=== PATIENT | female | born 1995 | race Caucasian/White ===

== ENCOUNTER 2016-11-21 12:39 | Emergency (ER) | payer SELFPAY ==
[~2016-11-21] VITALS: Ht 157.5 cm; Wt 56.4 kg
[~2016-11-21 12:39] MED LIST: ACYCLOVIR400 MG PO; AMOXICILLIN/CL875 MG OR; AMOXICILLIN500 M2 PO; AMOXICILLIN500 MG PO; AUGMENTIN875 MG OR; AUGMENTIN875TAB PO; BACTRIM DS1 TAB OR; BACTRIM DS1 TAB PO; CIPRODEX1 ML AU; CIPRODEX1 ML OT; DIFLUCAN150 MG PO; LORTAB 5 OR; MEDDOSEPAK OR; MOTRIN800 MG PO; NAPROSYN500 MG PO; NO HOME MEDS; TOBRAMYCIN0.3 % OD; ZOFRAN4 MG PO
[2016-11-21 15:01] LABS: HEMATOCRIT 41.9 % (37.0-47.0); HEMOGLOBIN 14.7 g/dl (12.0-16.0); IMMATURE GRANULOCYTES 0.5 % (0.0-1.0); MEAN CELL VOLUME 87.3 fL CALC (80.0-100.0); MEAN CORPUSCULAR HGB 30.6 pG CALC (26.0-32.0); MEAN CORPUSCULAR HGB CONC 35.1 g/L CALC (32.0-36.0); NEUT# 10.52 thou/uL (2.00-7.15); RED BLOOD COUNT 4.8 mill/uL (4.20-5.60); RED CELL DISTRI WIDTH 11.9 % (11.5-15.5)
[2016-11-21 15:03] LABS: URINE BILIRUBIN - DIPSTICK NEGATIVE (NEGATIVE); URINE BLOOD DIPSTICK NEGATIVE (NEGATIVE); URINE CLARITY CLEAR; URINE COLOR YELLOW; URINE GLUCOSE - DIPSTICK NEGATIVE (NEGATIVE); URINE KETONE >=80 mg/dL (NEGATIVE); URINE LEUK ESTERASE NEGATIVE (NEGATIVE); URINE NITRITE - DIPSTICK NEGATIVE (Negative); URINE PROTEIN - DIPSTICK TRACE mg/dL (NEG-TRACE); URINE SPECIFIC GRAVITY 1.015; URINE UROBILINOGEN - DIPSTICK 0.2 E.U./dL (0.2)
[2016-11-21 15:13] LABS: ALBUMIN 4.8 g/dL (3.2-5.0); ALKALINE PHOSPHATASE 38 u/l (38-126); ANION GAP 17 (6-22 (CALC)); BILIRUBIN, TOTAL 1.4 mg/dL (0.0-1.4); BUN 12 mg/dL (7-17); BUN/CREATININE RATIO 20 (12-20 (CALC)); CALCIUM 10.2 mg/dL (8.4-10.2); CARBON DIOXIDE 21 mmol/l (22-30); CHLORIDE 105 mmol/l (95-108); CREATININE 0.6 mg/dL (0.5-1.0); GFR > 60 ML/MIN (>=60 (CALC)); GFR FOR AFR.AMER. > 60 ML/MIN (>=60 (CALC)); GLUCOSE 87 mg/dL (65-105); POTASSIUM 3.6 mmol/l (3.5-5.1); SGOT/AST 16 u/l (14-36); SGPT/ALT 26 u/l (9-52); SODIUM 139 mmol/l (137-146)
[2016-11-21 15:31] LABS: BETA-HCG, QUANT(RESULT NUMBER) 43680 mIU/mL
[2016-11-21 15:40] LABS: C. DIFFICILE TOXIN A&B NEGATIVE (NEGATIVE)
[2016-11-21] MEDS ORDERED: PHENERGAN25 MG/TAB PO (18:28)
[2016-11-21] MEDS ORDERED: ZITHROMAX250 MG PO (18:28)
[2016-11-21 18:34] VITALS: BP 114/65
== END 2016-11-21 18:36 | disposition home or self-care (01) | DRG 781 ==
LOC: ED 12:39
PROVIDERS: Emergency Medicine
DX: O98.811 Other maternal infectious and parasitic diseases complicating pregnancy, first trimester (principal); A04.5 Campylobacter enteritis; R11.2 Nausea with vomiting, unspecified; Z3A.01 Less than 8 weeks gestation of pregnancy

== ENCOUNTER 2016-12-31 08:47 | Emergency (ER) | payer OTHER ==
[~2016-12-31] VITALS: Ht 157.5 cm; Wt 55.0 kg
[~2016-12-31 08:47] MED LIST changes: +PHENERGAN25 MG/TAB PO; +ZITHROMAX250 MG PO
[2016-12-31 09:25] LABS: INFLUENZA A NONE DETECTED (NONE DETECT); INFLUENZA B POSITIVE (NONE DETECT)
[2016-12-31] MEDS ORDERED: TAM75CAP PO (09:38)
[2016-12-31 09:45] VITALS: BP 118/62
== END 2016-12-31 09:51 | disposition home or self-care (01) | DRG 781 ==
LOC: ED 08:47
PROVIDERS: Emergency Medicine
DX: O99.511 Diseases of the respiratory system complicating pregnancy, first trimester (principal); J11.1 Influenza due to unidentified influenza virus with other respiratory manifestations; Z3A.11 11 weeks gestation of pregnancy

== ENCOUNTER 2017-03-01 10:17 | Emergency (ER) | payer OTHER ==
[~2017-03-01] VITALS: Ht 157.5 cm; Wt 60.0 kg
[~2017-03-01 10:17] MED LIST changes: +TAM75CAP PO
[2017-03-01] MEDS ORDERED: PRENATA4 PO (10:26)
[2017-03-01 11:08] LABS: HEMATOCRIT 36.2 % (37.0-47.0); HEMOGLOBIN 12.5 g/dl (12.0-16.0); IMMATURE GRANULOCYTES 0.6 % (0.0-1.0); MEAN CELL VOLUME 92.6 fL CALC (80.0-100.0); MEAN CORPUSCULAR HGB CONC 34.5 g/L CALC (32.0-36.0); NEUT# 7.68 thou/uL (2.00-7.15); RED BLOOD COUNT 3.91 mill/uL (4.20-5.60)
[2017-03-01 11:12] LABS: URINE BILIRUBIN - DIPSTICK NEGATIVE (NEGATIVE); URINE BLOOD DIPSTICK NEGATIVE (NEGATIVE); URINE CLARITY CLEAR; URINE COLOR YELLOW; URINE GLUCOSE - DIPSTICK NEGATIVE (NEGATIVE); URINE KETONE NEGATIVE (NEGATIVE); URINE LEUK ESTERASE NEGATIVE (NEGATIVE); URINE NITRITE - DIPSTICK NEGATIVE (Negative); URINE PROTEIN - DIPSTICK NEGATIVE (NEG-TRACE); URINE SPECIFIC GRAVITY 1.015; URINE UROBILINOGEN - DIPSTICK 0.2 E.U./dL (0.2)
[2017-03-01 11:26] LABS: ALBUMIN 3.8 g/dL (3.2-5.0); ALKALINE PHOSPHATASE 44 u/l (38-126); ANION GAP 13 (6-22 (CALC)); BILIRUBIN, TOTAL 0.3 mg/dL (0.0-1.4); BUN 8 mg/dL (7-17); BUN/CREATININE RATIO 16 (12-20 (CALC)); CALCIUM 8.9 mg/dL (8.4-10.2); CARBON DIOXIDE 26 mmol/l (22-30); CHLORIDE 104 mmol/l (95-108); CREATININE 0.5 mg/dL (0.5-1.0); GFR > 60 ML/MIN (>=60 (CALC)); GFR FOR AFR.AMER. > 60 ML/MIN (>=60 (CALC)); GLUCOSE 87 mg/dL (65-105); LIPASE 50 u/l (23-300); POTASSIUM 3.9 mmol/l (3.5-5.1); SGOT/AST 16 u/l (14-36); SGPT/ALT 25 u/l (9-52); SODIUM 139 mmol/l (137-146); TOTAL PROTEIN 6.6 g/dL (6.3-8.2)
[2017-03-01] MEDS ORDERED: PHENERGAN25 M1 PO (12:14)
[2017-03-01 12:46] VITALS: BP 108/68
== END 2017-03-01 12:47 | disposition home or self-care (01) | DRG 781 ==
LOC: ED 10:17
PROVIDERS: Family Medicine
DX: O21.8 Other vomiting complicating pregnancy (principal); R51 Headache; Z3A.20 20 weeks gestation of pregnancy